=== PATIENT | female | born 1970 | race African-American/Black ===

== ENCOUNTER 2016-10-04 08:34 | Emergency (ER) | payer SELFPAY ==
[2016-10-04] MEDS ORDERED: NS 0.9% 1000 ML* 1,000 ML IV ONE (10:12)
[2016-10-04 10:35] LABS: Hematocrit 39 % (35-47); Mean Corpuscular HGB Conc 33 g/dl (31-36); Mean Corpuscular Hemoglobin 30 pg (27-31); Mean Corpuscular Volume 91 fL (80-97); Mean Platelet Volume 9 um3 (7.4-10.4); Red Blood Count 4.33 10^6/ul (4.0-5.4); Red Cell Distribution Width 14 % (10.5-15); White Blood Count 8.8 10^3/ul (3.5-10.8)
[2016-10-04 10:57] LABS: ALT 11 U/L (7-52); AST 17 U/L (13-39); Albumin 4.1 g/dL (3.2-5.2); Alkaline Phosphatase 85 U/L (34-104); Anion Gap 7 mmol/L (2-11); BUN/Creatinine Ratio 14.9 (8-20); Blood Urea Nitrogen 10 mg/dL (6-24); C Reactive Protein < 1.00 mg/L (< 5.00); CO2 Carbon Dioxide 22 mmol/L (22-32); Chloride 105 mmol/L (101-111); EGFR Non-African American 95.6 (>60); Glucose 92 mg/dL (70-100); Potassium 4.2 mmol/L (3.5-5.0); Sodium 134 mmol/L (133-145); Total Protein 7.1 g/dL (6.4-8.9)
[2016-10-04 12:03] VITALS: BP 101/56
--- NOTE | 2016-10-13 12:15 | ED ---
Dai Lopez Matthew, scribed for Ken Scott MD on 10/04/16 at 0959 . GI/ HPI - HPI Summary HPI Summary: A 45 y/o female who believes she is presents to the ED with vaginal bleeding and lower abdominal pain since 09/28/16, which started while she was urinating, then on 09/29 she felt a "pop" in her abdomen followed by bleeding described as black w/ associated odor. She continues to have bleeding, but without odor. She states since 09/28 she has passed 8 clots. The patient states that she believes she became on July 07, but is unsure. She had a positive test two months ago and has not been seen by an DIRECTOR PHARMACOLOGY. She is A3. She had 2 miscarriages and 1 D&C. Last month she had four days of bleeding. The patient moved to [place] a year ago from [place]. Hx of polycystic kidney disease, diverticulitis. SHx cholecystectomy and D&C. FHx of CAD - father, and CVA - Father. - History of Current Complaint Chief Complaint: EDOBProblems Time Seen by Provider: 10/04/16 09:40 Stated Complaint: 4 WEEKS PREG BLEEDING Hx Obtained From: Patient Onset/Duration: Started Days Ago, Atraumatic, Still Present Timing: Constant, Lasting Days Severity: Moderate Current Severity: Moderate Vaginal Bleeding Description: Clots Pain Intensity: 8 Location of Pain: Diffuse - lower abdominal pain Associated Signs and Symptoms: Positive: Abdominal Pain Additional Signs & Symptoms: Positive: Vaginal Bleeding - Allergy/Home Medications Allergies/Adverse Reactions: Allergies Allergy/AdvReac Type Severity Reaction Status Date / Time Acetaminophen [From Tylox] Allergy Unknown Verified 10/04/16 08:47 Reaction Details Ibuprofen Allergy Swelling Verified 10/04/16 08:47 Oxycodone [From Tylox] Allergy Unknown Verified 10/04/16 08:47 Reaction Details Penicillins Allergy Anaphylatic Verified 10/04/16 08:47 Shock Promethazine [From Phenergan] Allergy Anaphylatic Verified 10/04/16 09:25 Shock Tramadol Allergy Anaphylatic Verified 10/04/16 08:47 Shock PMH/Surg Hx/FS Hx/Imm Hx GI History: Reports: Other GI Disorders - Hx of Diverticulitis History: Reports: Other Problems/Disorders - polycystic kidney disease Infectious Disease History: No Infectious Disease History: Denies: Traveled Outside the [place] in Last 30 Days - Family History Known Family History: Positive: Cardiac Disease - Father Family History: FHx of CVA - Father - Social History Alcohol Use: None Hx Substance Use: No Substance Use Type: Reports: None Hx Tobacco Use: No Smoking Status (MU): Never Smoked Tobacco Review of Systems Constitutional: Negative Eyes: Negative ENT: Negative Cardiovascular: Negative Respiratory: Negative Positive: Abdominal Pain - abdominal pain Genitourinary: Other - vaginal bleeding Musculoskeletal: Negative Skin: Negative Neurological: Negative Psychological: Normal All Other Systems Reviewed And Are Negative: Yes Physical Exam - Summary Physical Exam Summary: VITAL SIGNS: Reviewed. GENERAL: Patient is a well developed and nourished who is lying comfortable in the stretcher. Patient is not in any acute respiratory distress. HEAD AND FACE: Normocephalic and atraumatic. EYES: PERRLA, EOMI x 2, No injected conjunctiva. EARS: Hearing grossly intact. Ear canals and tympanic membranes are WNL. MOUTH: Oropharynx within normal limits. NECK: Supple, trachea is midline, no adenopathy, no JVD. CHEST: Symmetric, no tenderness at palpation LUNGS: Clear to auscultation bilaterally. No wheezing or crackles. CVS: RRR,, S1 and S2 present, no murmurs or gallops appreciated. ABDOMEN: Soft, non-tender. No signs of distention. Positive bowel sounds. No rebound no guarding, and no masses palpated. No abdominal bruit or pulsations. EXTREMITIES: FROM in all major joints, no edema, no cyanosis or clubbing. NEURO: Alert and oriented x 3. No acute neurological deficits. Speech is normal. 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 External genitalia: within normal limits. No rashes, lesions or ecchymosis. Speculum exam: vaginal carreon with no lesions, masses, or rashes. Positive trace of dark blood. No active bleeding. Cervix normal. No CMTs. No adnexal masses. Triage Information Reviewed: Yes Vital Signs On Initial Exam: Initial Vitals Temp Pulse Resp BP Pulse Ox 98.8 F 83 18 104/68 97 10/04/16 08:48 10/04/16 08:48 10/04/16 08:48 10/04/16 08:48 10/04/16 08:48 Vital Signs Reviewed: Yes Diagnostics - Vital Signs Vital Signs Temp Pulse Resp BP Pulse Ox 10/04/16 08:48 98.8 F 83 18 104/68 97 - Laboratory Lab Results: Lab Results 10/04/16 10/04/16 10/04/16 Range/Units 10:27 10:27 10:27 WBC 8.8 (3.5-10.8) 10^3/ul RBC 4.33 (4.0-5.4) 10^6/ul Hgb 13.0 (12.0-16.0) g/dl Hct 39 (35-47) % MCV 91 (80-97) fL MCH 30 (27-31) pg MCHC 33 (31-36) g/dl RDW 14 (10.5-15) % Plt Count 237 (150-450) 10^3/ul MPV 9 (7.4-10.4) um3 Neut % (Auto) 72.4 (38-83) % Lymph % (Auto) 12.9 L (25-47) % [place] % (Auto) 9.6 H (1-9) % Eos % (Auto) 4.5 (0-6) % Baso % (Auto) 0.6 (0-2) % Absolute Neuts (auto) 6.4 (1.5-7.7) 10^3/ul Absolute Lymphs (auto) 1.1 (1.0-4.8) 10^3/ul Absolute Monos (auto) 0.8 (0-0.8) 10^3/ul Absolute Eos (auto) 0.4 (0-0.6) 10^3/ul Absolute Basos (auto) 0.1 (0-0.2) 10^3/ul Absolute Nucleated RBC 0.01 10^3/ul Nucleated RBC % 0.1 Lactic Acid 0.7 (0.5-2.0) mmol/L Blood Type B Positive Result Diagrams: 10/04/16 10:27 10/04/16 10:27 Lab Statement: Any lab studies that have been ordered have been reviewed, and results considered in the medical decision making process. GIGU Course/Dx - Course Assessment/Plan: A 45 y/o female who believes she is presents to the ED with vaginal bleeding and lower abdominal pain since 09/28/16, which started while she was urinating, then on 09/29 she felt a "pop" in her abdomen followed by bleeding described as black w/ associated odor. She continues to have bleeding, but without odor. She states since 09/28 she has passed 8 clots. The patient states that she believes she became on July 07, but is unsure. She had a positive test two months ago and has not been seen by an DIRECTOR PHARMACOLOGY. She is A3. She had 2 miscarriages and 1 D&C. Last month she had four days of bleeding. The patient moved to [place] a year ago from [place]. Hx of polycystic kidney disease, diverticulitis. SHx cholecystectomy and D&C. FHx of CAD - father, and CVA - Father. Blood work WNL. Beta HCG is negative. In the pelvic exam the patient had a very scanty amount of dark blood without any active bleeding. The patient is not therefore there is no reason to do an US. I discussed my results with the patient and the need to follow-up with her PCP. The patient is A&Ox3 and hemodynamically stable. - Diagnoses Differential Diagnoses - Female: Ectopic , Threatened Provider Diagnoses: Vaginal bleeding Discharge - Discharge Plan Condition: Stable Disposition: HOME Patient Education Materials: Menorrhagia (ED) Referrals: [facility] [place] PHYSICIAN REFERRAL [Outside] Additional Instructions: Please follow-up with your primary care physician in 2 days. The documentation as recorded by the Dai alvarez Matthew accurately reflects the service I personally performed and the decisions made by me, Ken Scott MD.
== END 2016-10-04 12:27 | disposition home or self-care (01) ==
LOC: ED 08:34
DX: N93.9 Abnormal uterine and vaginal bleeding, unspecified (principal); Z34.91 Encounter for supervision of normal pregnancy, unspecified, first trimester
CPT/HCPCS: 36415; 80053; 83605; 84144; 84702; 85025; 86140; 86900; 86901; 96360; 99283

== ENCOUNTER 2017-05-15 17:04 | Emergency (ER) | payer SELFPAY ==
[2017-05-15] MEDS ORDERED: Morphine INJ* 4 MG/ML 1 ML CARPUJECT IV ONE ×2 (18:03→20:40)
[2017-05-15] MEDS ORDERED: Ondansetron INJ* 2 MG/ML VIAL IV ONE (18:03)
[2017-05-15] MEDS: NS 0.9% 1000 ML* 2,000 ML IV ONE (18:20)
[2017-05-15 18:28] LABS: Hematocrit 42 % (35-47); Hemoglobin 14.1 g/dl (12.0-16.0); Mean Corpuscular HGB Conc 34 g/dl (31-36); Mean Corpuscular Hemoglobin 31 pg (27-31); Mean Corpuscular Volume 91 fL (80-97); Mean Platelet Volume 8 um3 (7.4-10.4); Red Blood Count 4.59 10^6/ul (4.0-5.4); Red Cell Distribution Width 16 % (10.5-15); White Blood Count 8.9 10^3/ul (3.5-10.8)
[2017-05-15] MEDS ORDERED: HYDROmorphone INJ* 1 MG/ML CARPUJECT SYRINGE IV ONE ×2 (18:38→18:56)
[2017-05-15] MEDS ORDERED: HYDROmorphone INJ* 2 MG/ML CARPUJECT SYRINGE ONE (18:40)
[2017-05-15 18:45] LABS: ALT 8 U/L (7-52); AST 17 U/L (13-39); Albumin 4.4 g/dL (3.2-5.2); Alkaline Phosphatase 71 U/L (34-104); Anion Gap 10 mmol/L (2-11); BUN/Creatinine Ratio 10.9 (8-20); Blood Urea Nitrogen 7 mg/dL (6-24); C Reactive Protein < 1.00 mg/L (< 5.00); CO2 Carbon Dioxide 19 mmol/L (22-32); Calcium 9.1 mg/dL (8.6-10.3); Chloride 107 mmol/L (101-111); EGFR African American 129.1 (>60); EGFR Non-African American 100.3 (>60); Globulin 3.3 g/dL (2-4); Glucose 119 mg/dL (70-100); Lipase 42 U/L (11.0-82.0); Potassium 3.7 mmol/L (3.5-5.0); Sodium 136 mmol/L (133-145); Total Protein 7.7 g/dL (6.4-8.9)
[2017-05-15] MEDS ORDERED: cefTRIAXone(*) 1 GM in NS 0.9% 50 ML* 50 ML IVPB ONE (18:57)
--- NOTE | 2017-05-15 19:07 | ED ---
Ceci Lopez Abhishek, scribed for Macho Tate MD on 05/15/17 at 1810 . Back Pain - HPI Summary HPI Summary: This patient is a 46 year old F BIBA with a c/o of lower back and vaginal pain since yesterday. The pain is described as sharp pain. The pain has also radiated into the abd. The patient rates the pain 8/10 in severity. Symptoms aggravated by nothing. Symptoms alleviated by nothing. Patient reports N/V. Patient denies vaginal discharge. - History of Current Complaint Chief Complaint: EDBackInjuryPain Stated Complaint: BACK PAIN,FLU-LIKE SYMPTOMS Time Seen by Provider: 05/15/17 17:57 Hx Obtained From: Patient Onset/Duration: Lasting Days - since yesterday Onset/Duration: Started Days Ago - since yesterday Timing: Constant Back Pain Location: Radiates To - abd Severity Initially: Severe Severity Currently: Severe Pain Intensity: 8 Pain Scale Used: 0-10 Numeric Character: Sharp Aggravating Symptom(s): Nothing Alleviating Symptom(s): Nothing Associated Signs And Symptoms: Positive: Abdominal Pain, Other - vomitting, and vaginal pain - Allergies/Home Medications Allergies/Adverse Reactions: Allergies Allergy/AdvReac Type Severity Reaction Status Date / Time Acetaminophen [From Tylox] Allergy Unknown Verified 10/04/16 08:47 Reaction Details Ibuprofen Allergy Swelling Verified 10/04/16 08:47 Oxycodone [From Tylox] Allergy Unknown Verified 10/04/16 08:47 Reaction Details Penicillins Allergy Anaphylatic Verified 10/04/16 08:47 Shock Promethazine [From Phenergan] Allergy Anaphylatic Verified 10/04/16 09:25 Shock Tramadol Allergy Anaphylatic Verified 10/04/16 08:47 Shock PMH/Surg Hx/FS Hx/Imm Hx GI History: Reports: Other GI Disorders - Hx of Diverticulitis History: Reports: Other Problems/Disorders - polycystic kidney disease - Surgical History Surgery Procedure, Year, and Place: chloeocystectomy. . D&C ( Dilation and Curettage) Infectious Disease History: Denies: Traveled Outside the [place] in Last 30 Days - Family History Known Family History: Positive: Cardiac Disease - Father Family History: FHx of CVA - Father - Social History Alcohol Use: None Hx Substance Use: No Substance Use Type: Reports: None Hx Tobacco Use: No Smoking Status (MU): Never Smoked Tobacco Review of Systems Constitutional: Negative Eyes: Negative ENT: Negative Cardiovascular: Negative Respiratory: Negative Positive: Abdominal Pain, Vomiting, Nausea Genitourinary: Other Positive: pain - vaginal. Negative: discharge Positive: Myalgia - lower back pain Skin: Negative Neurological: Negative Psychological: Normal All Other Systems Reviewed And Are Negative: Yes Physical Exam Triage Information Reviewed: Yes Vital Signs On Initial Exam: Initial Vitals Temp Pulse Resp BP Pulse Ox 98.8 F 96 22 148/88 98 05/15/17 17:11 05/15/17 17:11 05/15/17 17:11 05/15/17 17:11 05/15/17 17:11 Vital Signs Reviewed: Yes - [place] Coma Scale Coma Scale Total: 15 Diagnostics - Vital Signs Vital Signs Temp Pulse Resp BP Pulse Ox 05/15/17 17:11 98.8 F 96 22 148/88 98 - Laboratory Lab Results: Lab Results 05/15/17 05/15/17 05/15/17 Range/Units 18:20 18:20 18:20 WBC 8.9 (3.5-10.8) 10^3/ul RBC 4.59 (4.0-5.4) 10^6/ul Hgb 14.1 (12.0-16.0) g/dl Hct 42 (35-47) % MCV 91 (80-97) fL MCH 31 (27-31) pg MCHC 34 (31-36) g/dl RDW 16 H (10.5-15) % Plt Count 165 (150-450) 10^3/ul MPV 8 (7.4-10.4) um3 Neut % (Auto) 87.2 H (38-83) % Lymph % (Auto) 7.3 L (25-47) % [place] % (Auto) 5.2 (1-9) % Eos % (Auto) 0 (0-6) % Baso % (Auto) 0.3 (0-2) % Absolute Neuts (auto) 7.7 (1.5-7.7) 10^3/ul Absolute Lymphs (auto) 0.6 L (1.0-4.8) 10^3/ul Absolute Monos (auto) 0.5 (0-0.8) 10^3/ul Absolute Eos (auto) 0 (0-0.6) 10^3/ul Absolute Basos (auto) 0 (0-0.2) 10^3/ul Absolute Nucleated RBC 0 10^3/ul Nucleated RBC % 0 INR (Anticoag Therapy) 1.01 (0.77-1.02) APTT 26.6 (26.0-36.3) seconds Sodium 136 (133-145) mmol/L Potassium 3.7 (3.5-5.0) mmol/L Chloride 107 (101-111) mmol/L Carbon Dioxide 19 L (22-32) mmol/L Anion Gap 10 (2-11) mmol/L BUN 7 (6-24) mg/dL Creatinine 0.64 (0.51-0.95) mg/dL Est GFR ( Amer) 129.1 (>60) Est GFR (Non-Af Amer) 100.3 (>60) BUN/Creatinine Ratio 10.9 (8-20) Glucose 119 H (70-100) mg/dL Lactic Acid (0.5-2.0) mmol/L Calcium 9.1 (8.6-10.3) mg/dL Total Bilirubin 0.50 (0.2-1.0) mg/dL AST 17 (13-39) U/L ALT 8 (7-52) U/L Alkaline Phosphatase 71 (34-104) U/L C-Reactive Protein < 1.00 (< 5.00) mg/L Total Protein 7.7 (6.4-8.9) g/dL Albumin 4.4 (3.2-5.2) g/dL Globulin 3.3 (2-4) g/dL Albumin/Globulin Ratio 1.3 (1-3) Lipase 42 (11.0-82.0) U/L Beta HCG, Quant < 0.60 mIU/mL Acetaminophen Pending 05/15/17 Range/Units 18:20 WBC (3.5-10.8) 10^3/ul RBC (4.0-5.4) 10^6/ul Hgb (12.0-16.0) g/dl Hct (35-47) % MCV (80-97) fL MCH (27-31) pg MCHC (31-36) g/dl RDW (10.5-15) % Plt Count (150-450) 10^3/ul MPV (7.4-10.4) um3 Neut % (Auto) (38-83) % Lymph % (Auto) (25-47) % [place] % (Auto) (1-9) % Eos % (Auto) (0-6) % Baso % (Auto) (0-2) % Absolute Neuts (auto) (1.5-7.7) 10^3/ul Absolute Lymphs (auto) (1.0-4.8) 10^3/ul Absolute Monos (auto) (0-0.8) 10^3/ul Absolute Eos (auto) (0-0.6) 10^3/ul Absolute Basos (auto) (0-0.2) 10^3/ul Absolute Nucleated RBC 10^3/ul Nucleated RBC % INR (Anticoag Therapy) (0.77-1.02) APTT (26.0-36.3) seconds Sodium (133-145) mmol/L Potassium (3.5-5.0) mmol/L Chloride (101-111) mmol/L Carbon Dioxide (22-32) mmol/L Anion Gap (2-11) mmol/L BUN (6-24) mg/dL Creatinine (0.51-0.95) mg/dL Est GFR ( Amer) (>60) Est GFR (Non-Af Amer) (>60) BUN/Creatinine Ratio (8-20) Glucose (70-100) mg/dL Lactic Acid 1.0 (0.5-2.0) mmol/L Calcium (8.6-10.3) mg/dL Total Bilirubin (0.2-1.0) mg/dL AST (13-39) U/L ALT (7-52) U/L Alkaline Phosphatase (34-104) U/L C-Reactive Protein (< 5.00) mg/L Total Protein (6.4-8.9) g/dL Albumin (3.2-5.2) g/dL Globulin (2-4) g/dL Albumin/Globulin Ratio (1-3) Lipase (11.0-82.0) U/L Beta HCG, Quant mIU/mL Acetaminophen Result Diagrams: 05/15/17 18:20 05/15/17 18:20 Lab Statement: Any lab studies that have been ordered have been reviewed, and results considered in the medical decision making process. Back Pain Course/Dx - Course Course Of Treatment: DISPOSITION PENDING AT SHIFT CHANGE - Diagnoses Provider Diagnoses: Abdominal pain, Pelvic pain, Vaginal pain, Bartholin cyst Discharge - Discharge Plan Condition: Stable Disposition: OTHER Discharge Disposition Comment: , Referrals: Non Staff,Doctor [Primary Care Provider] - The documentation as recorded by the Ceci alvarez Abhishek accurately reflects the service I personally performed and the decisions made by me, Macho Tate MD.
[2017-05-15 19:09] LABS: Acetaminophen < 15 mcg/mL
[2017-05-15] MEDS ORDERED: Iohexol 300* (CONTRAST) 10 ML SDV IV ONE (20:15)
--- NOTE | 2017-05-15 20:37 | RAD ---
INDICATION: Pelvic pain. COMPARISON: There are no prior studies available for comparison. TECHNIQUE: Multiple real-time transvaginal images of the pelvis were obtained. FINDINGS: The uterus is retroverted and normal in size and shape. The uterus measured 8.3 x 4.5 x 5.1 cm. The endometrial echo measured 1.0 cm in thickness. The right ovary measured 3.5 x 2.8 x 2.6 cm. The left ovary measured 3.1 x 2.3 x 1.4 cm. There is vascular flow within both ovaries. There is a small complex right ovarian cyst measuring 2.1 x 1.7 x 2.2 cm in size. There is a small amount of free intraperitoneal fluid in the cul-de-sac. IMPRESSION: SMALL AMOUNT OF FREE INTRAPERITONEAL FLUID AND SMALL COMPLEX RIGHT OVARIAN CYST POSSIBLY REPRESENTING AN INVOLUTING FOLLICULAR CYST. RECOMMEND A FOLLOW-UP PELVIC ULTRASOUND IN 1-2 MONTHS TIME TO DEMONSTRATE RESOLUTION.
--- NOTE | 2017-05-15 21:32 | RAD ---
INDICATION: Lower abdominal pain. COMPARISON: Comparison is made with a prior pelvic ultrasound study of the same date. TECHNIQUE: A CT scan of the abdomen and pelvis was performed with intravenous and without oral contrast following intravenous injection of 81 ml of Omnipaque 300 nonionic contrast. Contiguous axial sections were obtained from the lung bases through the symphysis pubis. Images were reconstructed in the coronal and sagittal planes. FINDINGS: There are small infiltrates at both lung bases. No pleural effusion is present. The liver and spleen are normal in size. There are several small subcentimeter hypodense hepatic lesions which are too small to characterize by CT and numerous hypodense small splenic lesions. The patient is status post cholecystectomy. The pancreas appears to be within normal limits. The adrenal glands and kidneys are normal in size. No hydronephrosis is seen. There is a large 5 cm cyst arising from the mid and lower pole of the left kidney. The aorta is normal in caliber and demonstrates homogeneous contrast opacification. No significant enlarged retroperitoneal lymph nodes are seen. The stomach, small and large bowel appear nondistended. The appendix is not well demonstrated on this noncontrast study. No inflammatory changes are seen in the right lower quadrant. The uterus is retroverted and normal in size. There is a 2.1 cm right ovarian cyst. No free intraperitoneal air is seen. There is a trace amount of free intraperitoneal fluid in the cul-de-sac. No significant focal osseous abnormality is seen. IMPRESSION: 1. NO EVIDENCE FOR ACUTE FINDING OR CAUSE FOR THE PATIENT'S ABDOMINAL PAIN IS SEEN. 2. MULTIPLE SMALL SUBCENTIMETER HEPATIC AND SPLENIC LESIONS LIKELY INCIDENTAL ALTHOUGH NONSPECIFIC. RECOMMEND A FOLLOW-UP OUTPATIENT ULTRASOUND OF THE LIVER AND SPLEEN FOR FURTHER EVALUATION. 3. STATUS POST CHOLECYSTECTOMY.
--- NOTE | 2017-05-15 21:56 | ED ---
José Luis Lopez Tecjoon, scribed for Mynor Jackson MD on 05/15/17 at 2150 . Progress - Progress Note Progress Note: Patient was signed out by Dr. Tate, awaiting imaging. US Transvaginal reveals, per radiologist, IMPRESSION: SMALL AMOUNT OF FREE INTRAPERITONEAL FLUID AND SMALL COMPLEX RIGHT OVARIAN CYST POSSIBLY REPRESENTING AN INVOLUTING FOLLICULAR CYST. RECOMMEND A FOLLOW-UP PELVIC ULTRASOUND IN 1-2 MONTHS TIME TO DEMONSTRATE RESOLUTION. ED physician has reviewed this radiology report. CT ABD/PEL reveals, per radiologist, IMPRESSION: 1. NO EVIDENCE FOR ACUTE FINDING OR CAUSE FOR THE PATIENT'S ABDOMINAL PAIN IS SEEN. 2. MULTIPLE SMALL SUBCENTIMETER HEPATIC AND SPLENIC LESIONS LIKELY INCIDENTAL ALTHOUGH NONSPECIFIC. RECOMMEND A FOLLOW-UP OUTPATIENT ULTRASOUND OF THE LIVER AND SPLEEN FOR FURTHER EVALUATION. 3. STATUS POST CHOLECYSTECTOMY. ED physician has reviewed this radiology report. Course/Dx - Course Course Of Treatment: CT and US results revealed no findings in both imagings to explain her symptoms. Patient discharged home with back pain. Patient is advised to follow up with OBGYN and PCP within 3 days. The patient is agreeable with this plan. - Diagnoses Provider Diagnoses: Abdominal pain, Pelvic pain, Vaginal pain, Bartholin cyst, Back pain The documentation as recorded by the José Luis alvarez Tecjoon accurately reflects the service I personally performed and the decisions made by Manuel abreu Abdul, MD.
[2017-05-15 23:35] VITALS: BP 141/83
== END 2017-05-15 23:33 ==
LOC: ED 17:04
DX: R10.2 Pelvic and perineal pain (principal); R10.9 Unspecified abdominal pain; N75.0 Cyst of Bartholin's gland; N83.201 Unspecified ovarian cyst, right side; D73.89 Other diseases of spleen; K76.9 Liver disease, unspecified; Z88.5 Allergy status to narcotic agent; Z88.0 Allergy status to penicillin; Z88.8 Allergy status to other drugs, medicaments and biological substances; Z90.49 Acquired absence of other specified parts of digestive tract
CPT/HCPCS: 36415; 74177; 76830; 80053; 80329; 83605; 83690; 84702; 85025; 85610; 85730; 86140; 87040; 87480; 87491; 87510; 87591; 87661; 96361; 96365; 96375; 96376; 99285; G0480; J0696; J1170; J2270; J2405; Q9967

== ENCOUNTER 2017-05-16 00:05 | Emergency (ER) | payer SELFPAY ==
[2017-05-16] MEDS ORDERED: Lidocaine 2% EPI 1:200000 MPF* 20 ML VIAL ONE (00:34)
[2017-05-16] MEDS ORDERED: DOXYcycline CAP(*) 100 MG PO ONE (00:59)
[2017-05-16] MEDS ORDERED: PROCHLORPERAZINE INJ 5 MG/ML 2 ML VIAL IM ONE (01:43)
[2017-05-16] MEDS ORDERED: Morphine INJ* 4 MG/ML 1 ML CARPUJECT IM ONE (01:45)
--- NOTE | 2017-05-16 03:26 | ED ---
José Luis Lopez Tecjoon, scribed for Mynor Jackson MD on 05/16/17 at 0034 . GI/ HPI - HPI Summary HPI Summary: This patient is a 46 year old female presenting to [facility] with a chief complaint of severe vaginal pain since yesterday. The pain is described as throbbing. The pain is rated 10/10 in severity. Symptoms aggravated by ambulation. Symptoms alleviated by nothing. Patient additionally reports nausea, vomiting, back pain. Pt states that she was dx with ovarian cyst and Bartholins cyst earlier this evening at [facility]. - History of Current Complaint Chief Complaint: EDNauseaVomitDiarrh Time Seen by Provider: 05/16/17 00:19 Stated Complaint: VOMITING Hx Obtained From: Patient Onset/Duration: Started Days Ago, Worse Since - leaving ED yesterday evening Timing: Constant Severity: Severe Current Severity: Severe Pain Intensity: 10 - /10 Location of Pain: Groin, Other - vaginal Additional Location for Females: Other - "in canal" Pain Characteristics: Other: - throbbing Associated Signs and Symptoms: Positive: Other: - nausea, vomiting, back pain. - Allergy/Home Medications Allergies/Adverse Reactions: Allergies Allergy/AdvReac Type Severity Reaction Status Date / Time Acetaminophen [From Tylox] Allergy Unknown Verified 05/16/17 00:16 Reaction Details Ibuprofen Allergy Swelling Verified 05/16/17 00:16 Oxycodone [From Tylox] Allergy Unknown Verified 05/16/17 00:16 Reaction Details Penicillins Allergy Anaphylatic Verified 05/16/17 00:16 Shock Promethazine [From Phenergan] Allergy Anaphylatic Verified 05/16/17 00:16 Shock Tramadol Allergy Anaphylatic Verified 05/16/17 00:16 Shock PMH/Surg Hx/FS Hx/Imm Hx Previously Healthy: No Endocrine/Hematology History: Denies: Hx Diabetes GI History: Reports: Other GI Disorders - Hx of Diverticulitis History: Reports: Other Problems/Disorders - polycystic kidney disease - Surgical History Surgery Procedure, Year, and Place: chloeocystectomy. . D&C ( Dilation and Curettage) Infectious Disease History: No Infectious Disease History: Denies: Traveled Outside the [place] in Last 30 Days - Family History Known Family History: Positive: Cardiac Disease - Father Family History: FHx of CVA - Father - Social History Alcohol Use: None Hx Substance Use: No Substance Use Type: Reports: None Hx Tobacco Use: No Smoking Status (MU): Never Smoked Tobacco Review of Systems Negative: Fever Positive: Vomiting, Nausea Positive: other - vaginal pain Positive: Other - back pain All Other Systems Reviewed And Are Negative: Yes Physical Exam - Summary Physical Exam Summary: VITAL SIGNS: Reviewed. GENERAL: Patient is a well-developed and nourished female who is lying comfortable in the stretcher. Patient is not in any acute respiratory distress. HEAD AND FACE: No signs of trauma. No ecchymosis, hematomas or skull depressions. No sinus tenderness. EYES: PERRLA, EOMI x 2, No injected conjunctiva, no nystagmus. EARS: Hearing grossly intact. Ear canals and tympanic membranes are within normal limits. MOUTH: Oropharynx within normal limits. NECK: Supple, trachea is midline, no adenopathy, no JVD, no carotid bruit, no c- spine tenderness, neck with full ROM. CHEST: Symmetric, no tenderness at palpation LUNGS: Clear to auscultation bilaterally. No wheezing or crackles. CVS: Regular rate and rhythm, S1 and S2 present, no murmurs or gallops appreciated. ABDOMEN: Soft, non-tender. No signs of distention. No rebound no guarding, and no masses palpated. Bowel sounds are normal. EXTREMITIES: FROM in all major joints, no edema, no cyanosis or clubbing. PELVIC: Patient has tenderness and swelling over lower part of left labia. Consistent with Bartholin's abscess. Needle aspiration, marlena out approx. 2.5cc of pus. NEURO: Alert and oriented x 3. No acute neurological deficits. Speech is normal and follows commands. SKIN: Dry and warm Triage Information Reviewed: Yes Vital Signs On Initial Exam: Initial Vitals Temp Pulse Resp BP Pulse Ox 97.7 F 72 16 118/63 99 05/16/17 00:10 05/16/17 00:10 05/16/17 00:10 05/16/17 00:10 05/16/17 00:10 Vital Signs Reviewed: Yes Procedures - Incision and Drainage Site: Bartholin's Abscess Anesthesia: Lidocaine - 2% Instrument(s): Scalpel - 11 Packing: Other - 7 cc of pus removed. Loculi broken. Wound irrigated and packed. Diagnostics - Vital Signs Vital Signs Temp Pulse Resp BP Pulse Ox 05/16/17 00:10 97.7 F 72 16 118/63 99 - Laboratory Lab Statement: Any lab studies that have been ordered have been reviewed, and results considered in the medical decision making process. GIGU Course/Dx - Course Course Of Treatment: This patient is a 46 year old female presenting to [facility] with a chief complaint of severe vaginal pain since yesterday. The pain is described as throbbing. The pain is rated 10/10 in severity. Symptoms aggravated by ambulation. Symptoms alleviated by nothing. Patient additionally reports nausea, vomiting, back pain. Pt states that she was dx with ovarian cyst and Bartholins cyst earlier this evening at [facility]. Bartholins abscess Incision and Drainage procedure was completed. Used lidocaine 2% and local anesthesia was achieved. Using scalpel 11, we made an incision and 7 cc of pus was drawn out. Loculi broken. The wound was irrigated and packed. In the ED course the patient was given Vibramycin, Morphine, Compazine. Patient will be discharged with prescription for antibiotics and follow up from PCP and Dr. Covarrubias (OBGYN) in 2-3 days. Patient is diagnosed with Bartholins abscess. The patient is agreeable with this plan. - Diagnoses Provider Diagnoses: Bartholin's gland abscess Discharge - Discharge Plan Condition: Good Disposition: HOME Prescriptions: DOXYcycline CAP(*) [DOXYcycline 100MG CAP(*)] 100 mg PO BID #14 cap Ibuprofen TAB* [Motrin TAB* 800 MG] 800 mg PO Q6H PRN #30 tab PRN Reason: Pain Referrals: Non Staff,Doctor [Primary Care Provider] - 3 Days Herb Covarrubias MD [Medical Doctor] - 3 Days The documentation as recorded by the José Luis alvarez Tecjoon accurately reflects the service I personally performed and the decisions made by me, Mynor Jackson MD.
[2017-05-16 03:43] VITALS: BP 124/80
[2017-05-16] MEDS ORDERED: DOXYcycline CAP(*) 100 MG PO SCH (09:00)
== END 2017-05-16 03:35 | disposition home or self-care (01) ==
LOC: ED 00:05
DX: N75.1 Abscess of Bartholin's gland (principal); R11.2 Nausea with vomiting, unspecified; M54.9 Dorsalgia, unspecified; R10.2 Pelvic and perineal pain
CPT/HCPCS: 87070; 87205; 96372; 99283; A9270-GY; J0780; J2270

== ENCOUNTER → 2018-06-12 10:34 | Emergency (ER) | payer MEDICAID ==
[~2018-06-12 10:34] MED LIST: Iohexol 300* (CONTRAST) 10 ML SDV IV ONE; Morphine INJ* 10 MG/ML 1 ML CARPUJECT IV ONE; Morphine VIAL* 4 MG/ML VIAL (1 ml vial) IV ONE; NS 0.9% 1000 ML* 1,000 ML IV ONE; Ondansetron INJ* 2 MG/ML VIAL IV ONE; Ondansetron ODT TAB* 4 MG PO ONE
[2018-06-12 11:38] LABS: ABS Basophils 0 10^3/ul (0-0.2); ABS Eosinophils 0.3 10^3/ul (0-0.6); ABS Lymphocytes 1.3 10^3/ul (1.0-4.8); ABS Monocytes 0.8 10^3/ul (0-0.8); ABS Neutrophils 5.4 10^3/ul (1.5-7.7); ABS Nucleated RBC 0 10^3/ul; Eosinophil % 4.3 %; Hematocrit 40 % (35-47); Hemoglobin 13.3 g/dl (12.0-16.0); Lymphocyte % 16.3 %; Mean Corpuscular HGB Conc 34 g/dl (31-36); Mean Corpuscular Hemoglobin 31 pg (27-31); Mean Corpuscular Volume 92 fL (80-97); Mean Platelet Volume 8.3 fL (7.4-10.4); Nucleated Red Blood Cells % 0.1; Platelet Count 214 10^3/ul (150-450); Red Blood Count 4.32 10^6/ul (4.00-5.40); Red Cell Distribution Width 14 % (10.5-15); White Blood Count 7.9 10^3/ul (3.5-10.8)
[2018-06-12 11:57] LABS: ALT 9 U/L (7-52); AST 20 U/L (13-39); Albumin/Globulin Ratio 1.2 (1-3); Alkaline Phosphatase 81 U/L (34-104); Anion Gap 8 mmol/L (2-11); BUN/Creatinine Ratio 16.9 (8-20); Blood Urea Nitrogen 10 mg/dL (6-24); CO2 Carbon Dioxide 19 mmol/L (22-32); Calcium 9.1 mg/dL (8.6-10.3); Chloride 108 mmol/L (101-111); EGFR African American 133.4 (>60); EGFR Non-African American 110.2 (>60); Globulin 3.3 g/dL (2-4); Glucose 100 mg/dL (70-100); Potassium 3.7 mmol/L (3.5-5.0); Sodium 135 mmol/L (135-145); Total Protein 7.3 g/dL (6.4-8.9)
--- NOTE | 2018-06-12 12:07 | ED ---
Complex/Multi-Sys Presentation - HPI Summary HPI Summary: This pt is a 46 y/o female presenting to [facility] via EMS c/o nausea, vomiting, abd pain, headache, and fever. Pt reports she has hx of Bartholin cyst and every time she has an infection she notes she has these symptoms. Additionally pt notes anxiety and back pain. Denies lightheadedness, dizziness, chest pain, SOB. PMHx: Kidney disease, Diverticulitis, Bartholin cyst. Denies hx of DM or HTN. - History Of Current Complaint Chief Complaint: EDGeneral Hx Obtained From: Patient Onset/Duration: Lasting Days, Still Present Timing: Days Location: Pain At: - back and head Aggravating Factor(s): nothing Alleviating Factor(s): nothing Associated Signs And Symptoms: Positive: Headache, Nausea, Vomiting, Back Pain, Fever, Other - POS: anxiety. Negative: SOB, Chest Pain - Allergies/Home Medications Allergies/Adverse Reactions: Allergies Allergy/AdvReac Type Severity Reaction Status Date / Time amoxicillin Allergy Anaphylatic Verified 06/12/18 10:42 Shock ibuprofen Allergy Swelling Verified 06/12/18 10:42 oxycodone Allergy Anaphylatic Verified 06/12/18 10:42 Shock Penicillins Allergy Anaphylatic Verified 06/12/18 10:42 Shock promethazine Allergy Anaphylatic Verified 06/12/18 10:42 Shock Sulfa (Sulfonamide Allergy Anaphylatic Verified 06/12/18 10:42 Antibiotics) Shock tramadol Allergy Anaphylatic Verified 06/12/18 10:42 Shock PMH/Surg Hx/FS Hx/Imm Hx Endocrine/Hematology History: Denies: Hx Diabetes Cardiovascular History: Denies: Hx Hypertension GI History: Reports: Other GI Disorders - Hx of Diverticulitis History: Reports: Other Problems/Disorders - polycystic kidney disease - Surgical History Surgery Procedure, Year, and Place: chloeocystectomy. . D&C ( Dilation and Curettage) - Immunization History Immunizations Up to Date: Yes Infectious Disease History: No Infectious Disease History: Denies: Traveled Outside the [place] in Last 30 Days - Family History Known Family History: Positive: Cardiac Disease - Father Family History: FHx of CVA - Father - Social History Alcohol Use: Rare Hx Substance Use: No Substance Use Type: Reports: Marijuana Hx Tobacco Use: No Smoking Status (MU): Never Smoked Tobacco Review of Systems Negative: Fever - today none Negative: Chest Pain Negative: Shortness Of Breath Positive: Abdominal Pain, Vomiting, Nausea Musculoskeletal: Other - POS: back pain Neurological: Other - NEG: dizziness, lightheadedness Positive: Headache Positive: Anxious All Other Systems Reviewed And Are Negative: No Physical Exam - Summary Physical Exam Summary: Appearance: Alert, conversive, nontoxic appearing Skin: Warm, dry, no mottling, no rashes, no contusions HEENT: EOMI, PERRL, moist mucous membranes Neck: No masses on the neck, supple Respiratory: Clear to auscultation, breath sounds present, no rales, no rhonchi , no wheezes Cardiovascular: RRR, pulses are symmetrical in both lower and upper extremities Abdomen: Soft, some abdominal tenderness Bowel Sounds: Present : pt has swelling on left lateral posterior between the labia minora and majora, no pores. Not TTP. Slightly protruding. Not erythematous. Musculoskeletal: No CVA tenderness, no obvious deformity, moving all extremities in a grossly normal manner Neurological: A&Ox3, CN II-XII Intact, moving all extremities symmetrically Psychiatric: Normal affect and mood Triage Information Reviewed: Yes Vital Signs On Initial Exam: Initial Vitals Temp Pulse Resp BP Pulse Ox 97.8 F 72 28 109/65 100 06/12/18 10:35 06/12/18 10:35 06/12/18 10:35 06/12/18 10:35 06/12/18 10:35 Vital Signs Reviewed: Yes Diagnostics - Vital Signs Vital Signs Temp Pulse Resp BP Pulse Ox 06/12/18 11:01 62 100 06/12/18 10:58 63 88 06/12/18 10:57 59 119/71 98 06/12/18 10:35 97.8 F 72 28 109/65 100 - Laboratory Lab Results: Lab Results 06/12/18 06/12/18 06/12/18 Range/Units 11:25 11:25 11:25 WBC 7.9 (3.5-10.8) 10^3/ul RBC 4.32 (4.00-5.40) 10^6/ul Hgb 13.3 (12.0-16.0) g/dl Hct 40 (35-47) % MCV 92 (80-97) fL MCH 31 (27-31) pg MCHC 34 (31-36) g/dl RDW 14 (10.5-15) % Plt Count 214 (150-450) 10^3/ul MPV 8.3 (7.4-10.4) fL Neut % (Auto) 68.7 % Lymph % (Auto) 16.3 % [place] % (Auto) 10.1 % Eos % (Auto) 4.3 % Baso % (Auto) 0.6 % Absolute Neuts (auto) 5.4 (1.5-7.7) 10^3/ul Absolute Lymphs (auto) 1.3 (1.0-4.8) 10^3/ul Absolute Monos (auto) 0.8 (0-0.8) 10^3/ul Absolute Eos (auto) 0.3 (0-0.6) 10^3/ul Absolute Basos (auto) 0 (0-0.2) 10^3/ul Absolute Nucleated RBC 0 10^3/ul Nucleated RBC % 0.1 Sodium 135 (135-145) mmol/L Potassium 3.7 (3.5-5.0) mmol/L Chloride 108 (101-111) mmol/L Carbon Dioxide 19 L (22-32) mmol/L Anion Gap 8 (2-11) mmol/L BUN 10 (6-24) mg/dL Creatinine 0.59 (0.51-0.95) mg/dL Est GFR ( Amer) 133.4 (>60) Est GFR (Non-Af Amer) 110.2 (>60) BUN/Creatinine Ratio 16.9 (8-20) Glucose 100 (70-100) mg/dL Calcium 9.1 (8.6-10.3) mg/dL Total Bilirubin 0.80 (0.2-1.0) mg/dL AST 20 (13-39) U/L ALT 9 (7-52) U/L Alkaline Phosphatase 81 (34-104) U/L Total Protein 7.3 (6.4-8.9) g/dL Albumin 4.0 (3.2-5.2) g/dL Globulin 3.3 (2-4) g/dL Albumin/Globulin Ratio 1.2 (1-3) Lipase 43 (11.0-82.0) U/L Result Diagrams: 06/12/18 11:25 01/23/19 11:25 Lab Statement: Any lab studies that have been ordered have been reviewed, and results considered in the medical decision making process. - CT Abdomen/Pelvis CT CT Interpretation Completed By: Radiologist Summary of CT Findings: IMPRESSION: 1. There are multiple low-attenuation splenic lesions that increased in size and number when compared to the May 15, 2017 examination with several small hepatic lesions. The progression from the previous examination suggest a neoplastic or infectious process. Recommend consideration of tissue sampling. 2. 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 Dr. Presley has reviewed this report. Re-Evaluation - Re-Evaluation First Eval Re-Evaluation Time: 16:54 Comment: I reviewed lab and CT results with the pt. She states she knew about the splenic lesions. On re-eval her abdomen is soft. She reports she will be in the area until next month. Pt will be discharged home with referral to a PCP, and she agrees with the plan. Second Eval Re-Evaluation Time: 17:00 Comment: I discussed with pt that there is nothing to drain from her Bartholin cyst. Complex Multi-Symp Course/Dx Assessment/Plan: Pt is a 46 y/o female who presents with nausea, vomiting, headache, and fever. Pt reports she has hx of Bartholin cyst and every time she has an infection she notes she has these symptoms. Additionally pt notes anxiety and back pain. Lab work and urinalysis obtained. In the ED course the pt was given IV fluids, zofran, morphine. CT abdomen/pelvis shows 1. There are multiple low-attenuation splenic lesions that increased in size and number when compared to the May 15, 2017 examination with several small hepatic lesions. The progression from the previous examination suggest a neoplastic or infectious process. Recommend consideration of tissue sampling. 2. 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 Pt reports she knew about these lesions. I discussed with pt that there is nothing to drain from her Bartholin cyst. She will be discharged home with referral to a PCP. She is advised to take Tylenol for the pain. Pt was instructed to return to the ED for any worsening or new symptoms. - Diagnoses Provider Diagnoses: Abdominal pain Discharge - Sign-Out/Discharge Documenting (check all that apply): Patient Departure - Discharge home - Discharge Plan Condition: Stable Disposition: HOME Patient Education Materials: Abdominal Pain (ED) Referrals: [facility] [Outside] [facility] [Outside] Additional Instructions: Please establish care with a primary care physician while you are in the area. return if worse or any new symptoms. Take tylenol for pain. Please discuss your cysts to your spleen with your doctor. please establish care mine while you are here in [place]. - Billing Disposition and Condition Condition: STABLE Disposition: Home - Attestation Statements Document Initiated by Milagros: Yes Documenting Scribe: Aruna Smith Provider For Whom Milagros is Documenting (Include Credential): Liz Presley MD Scribe Attestation: Aruna Lopez, scribed for Liz Presley MD on 06/12/18 at 1812. Scribe Documentation Reviewed: Yes Provider Attestation: The documentation as recorded by the Aruna alvarez accurately reflects the service I personally performed and the decisions made by me, Liz Presley MD Status of Scribe Document: Viewed
[2018-06-12 12:54] LABS: Urine Appearance Cloudy; Urine Bilirubin Negative (Negative); Urine Blood Negative (Negative); Urine Color Yellow; Urine Glucose Negative (Negative); Urine Ketones Trace (Negative); Urine Nitrite Negative (Negative); Urine Protein Negative (Negative); Urine Specific Gravity 1.016 (1.010-1.030); Urine Urobilinogen Negative (Negative)
[2018-06-12 13:47] LABS: HCG Pregnancy < 0.60 mIU/mL
[2018-06-12 17:13] VITALS: BP 112/93
== END | disposition home or self-care (01) ==
LOC: EDBD → ED 10:34
DX: R10.9 Unspecified abdominal pain (principal); Z88.0 Allergy status to penicillin; Z88.2 Allergy status to sulfonamides
CPT/HCPCS: 36415; 74177; 80053; 81003; 83690; 84702; 85025; 96361; 96374; 96375; 99283; J2270; J2405; Q9967